=== PATIENT | female | born 1935 | race Caucasian/White ===

== ENCOUNTER → 2016-12-21 | Outpatient (CLI) | payer MEDICARE, OTHER ==
[~2016-12-21] MED LIST: ASPI81TA3 PO; CHOL2000 PO; CITRACAL PO; CLOP75TA19 PO; CYAN500T46 PO; ESCI20TA38 PO; ESOM20CA PO; HYDR-3498 PO; LEVO100T87 PO; LISI10TA2 PO; MAGN71.5 PO; ROSU40TA35 PO; VITA1TAB86 PO
--- NOTE | 2016-12-21 17:25 | RADRPT ---
PROCEDURE: XR Pelvis and Hips. CLINICAL INDICATION: Pelvic pain. Bilateral hip pain. TECHNIQUE: Five views. Frontal pelvis. Frontal and lateral right hip. Frontal and lateral left hip. COMPARISON: 09/19/2014. FINDINGS: There are bilateral total hip arthroplasties. These appear satisfactory with no fracture, dislocati on, or loosening. There is no lytic or blastic lesion. The upper pelvis is not included on the reinaldo ges. IMPRESSION: 1. Satisfactory postoperative appearance of both hips. RPTAT: QQ .Jan Hart MD, MD Date Time Electronically viewed and signed by .Jan Hart MD, MD on 12/21/2016 17:24 .R/
--- NOTE | 2016-12-29 07:02 | HKNOTE ---
DATE OF SERVICE: 12/21/2016 NEW CONDITION: MAIN COMPLAINT: 1. Pain in the left hip. 2. DICTATION ENDS HERE Dictated By: Vito Cheung MD /[email or web address] /Document#: [id number]
--- NOTE | 2017-01-03 15:27 | HKNOTE ---
DATE OF SERVICE: 12/21/2016 MAIN COMPLAINT: Pain in the left hip. HISTORY OF MAIN COMPLAINT: The patient is a 81-year-old female, who underwent bilateral hip replacements performed by me several years ago. Last surgery was on 06/16/11. She states that both hips were "perfect." She had no trouble with the hips at all until about nine months ago when she started developing pain on the lateral side of her left hip. She saw her meat wrapper, who ordered a lumbar spine CAT scan. He then referred her to me further evaluation. In January 2015, the patient fell and landed on the left buttocks. She was on Plavix at the time and had an intracranial hemorrhage. She had received two units of platelets. She thinks that possibly her hip pain started around about that time. Present complaint is pain in the left hip, mainly over the greater trochanter. There is some radiation to the lower back. The pain is aggravated by walking and stair climbing. She does get mild rest pain and night pain. The patient occasionally gets pain in her lower back since she had a fall in 2014. She does get some numbness and tingling in both feet. Once she gets walking, she can keep going for about a quarter of a mile without stopping. She does not use a walking aid. She limps some of the time. She does not have a shoe lift. The patient has not had any recent infections of any kind. PAST ORTHOPEDIC HISTORY AND PREVIOUS ORTHOPEDIC OPERATIONS: Bilateral hip replacements performed by Dr. Cheung somewhere around about 2011. PRIOR CORTISONE INTAKE: The patient has had cortisone injections, every 4-6 months for 2-3 years. ALCOHOL INTAKE: None since October 19, 1980. OTHER JOINT PROBLEMS: None. BLOOD TESTS FOR ARTHRITIS: None. 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 WORK STATUS: Patient is retired. 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 PAST MEDICAL HISTORY: 1. Currently on Plavix. 2. Peripheral artery disease. 3. Hypertension. PAST SURGICAL HISTORY: 1. Hysterectomy 1973. 2. Appendectomy . 3. Bunionectomy, both feet. 4. Fractured left arm with internal fixation 2014. DRUG ALLERGIES: 1. Sulfa. 2. Neosporin. MEDICATIONS: 1. Plavix. 2. Crestor. 3. Synthroid 4. Lisinopril. 5. Lexapro. 6. Baby aspirin. Stool softener. 7. Vitamin D3. 8. Vitamin B12. FAMILY HISTORY: Father with stroke at 93. Mother at age 45 from heart problems and alcohol. SYSTEMS REVIEW: Prone to dizzy spells. Blood clots: Had previous blood clot. Tingling sensations and numbness in both feet. Gait disturbance from her hip pain. History of present illness. Hypertension. Mild stroke. Constipated. Hemorrhoids. HABITS: Patient does not smoke. She quit drinking alcohol in September 1980. 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 PHYSICAL EXAMINATION: GENERAL: The patient is a fit-looking and very youthful, 81-year- old female. VITAL SIGNS: Height 5 foot 5 inches, weight 165 pounds. Blood pressure 140/65, temperature 98.9. EXTREMITIES: The patient walks without a walking aid. She has a slight antalgic gait. Examination of the right hip: A full range of motion without pain or tenderness. Examination of the left hip: Full range of motion without pain. Marked tenderness over the left greater trochanter. Knee examination: Both knees are clinically normal. NEUROLOGICAL: Deep tendon reflexes are symmetrical. Straight leg raising test is negative bilaterally at 80 degrees. IMAGING: Plain x-rays of the pelvis and bilateral hips were obtained today at the [facility] and these show two total hip replacements. All components are well attached to the bone and well aligned without any evidence of an underlying orthopedic problem. DIAGNOSIS: 1. Trochanteric bursitis of the left hip. 2. Status post bilateral total hip replacements. 3. Low back pain and possible left-sided sciatica. 4. Hypertension. 5. Peripheral artery disease. 6. She is currently on Plavix. MANAGEMENT: Under sterile conditions, she was given injection of 2 cc of Kenalog and 6 cc of 2 percent lidocaine into the left trochanteric bursa. The patient is being referred for an MRI scan of the lumbar spine. Note that this patient has recently had a CT scan of the lumbar spine, which was not available, and we were unable to find where it was done. In any case, apparently a CAT scan was ordered because the patient is under the impression that she could not have an MRI with metal hips. The patient will be seen again in two weeks' time for re- evaluation with her lumbar MRI scan. Dictated By: Vito Cheung MD /[email or web address]/[email or web address] /Document#: [id number]
--- NOTE | 2017-01-03 15:27 | HKNOTE ---
DATE OF SERVICE: 12/21/2016 Ness Hayward MD [address] [place] [address] Dear Doctor, Thereselawrence Hall was seen in the office today complaining of pain in the left hip with radiation down the left leg. She previously has had bilateral hip replacements. She has symptoms of trochanteric bursitis as well as left-sided sciatica. She was given a cortisone injection into the trochanteric bursa and is being referred for an MRI scan of the lumbar spine. Enclosed is a copy of my office note for your records. Thank you for your confidence and continued support. With warmest regards. Dictated By: Vito Cheung MD /[email or web address]/harshal /Document#: [id number]
== END | disposition home or self-care (01) ==
LOC: HKI 14:48
DX: Z96.643 Presence of artificial hip joint, bilateral (principal); Z79.02 Long term (current) use of antithrombotics/antiplatelets; I73.9 Peripheral vascular disease, unspecified; I10 Essential (primary) hypertension; M70.62 Trochanteric bursitis, left hip; M54.5 Low back pain
CPT/HCPCS: 20610; 73522; G0463

== ENCOUNTER → 2017-02-08 | Outpatient (CLI) | payer MEDICARE, OTHER ==
--- NOTE | 2017-02-26 14:05 | HKNOTE ---
DATE OF SERVICE: 02/08/2017 HISTORY OF PRESENT ILLNESS: The patient comes in with her MRI scan for review. The MRI obtained on 12/29/2016, is reported by Dr. Jackie Dominguez as showing at L3-L4 there is an anterolisthesis, disc bulge and facet hypertrophy, which mildly narrows the neural foramen without central stenosis. At L4-L5, slight anterolisthesis with facet arthropathy, which mildly narrows the neural foramen without central canal stenosis. The patient also has trochanteric bursitis of the right hip. MANAGEMENT: 1. Under sterile conditions, the patient is given injection of 2 mL of Kenalog and 6 mL 2 percent lidocaine into the trochanteric bursa. 2. She is being referred to Dr. Garrett Jimenez for pain management. She will be seen again as necessary. Dictated By: Vito Cheung MD /[email or web address] /Document#: [id number]
== END | disposition home or self-care (01) ==
LOC: HKI 14:43
DX: M70.61 Trochanteric bursitis, right hip (principal); Y93.9 Activity, unspecified; M51.26 Other intervertebral disc displacement, lumbar region
CPT/HCPCS: 20610